=== PATIENT | male | born 1970 | race Caucasian/White ===

== ENCOUNTER 2019-08-11 10:03 | Day surgery (SDC) | payer OTHER ==
[~2019-08-11 10:03] MED LIST: Propofol 200 MG/20 ML SDV ONE
[2019-08-11] MEDS ORDERED: Sodium Chloride 0.9% 10 ML Syringe FLUSH PRN (10:15)
[2019-08-11] MEDS: Lactated Ringers 1,000 ML IV SCH (11:03)
--- NOTE | 2019-08-11 11:04 | PCM.HPR ---
H & P Addendum review - H & P Addendum Review Date of Original H & P: 07/22/19 Date Reviewed: 08/11/19 Time Reviewed: 11:04 Patient was Examined: No Changes
[2019-08-11] MEDS ORDERED: Propofol 200 MG/20 ML SDV ONE (11:11)
[2019-08-11] MEDS ORDERED: Lidocaine 2% 5 ML SDV ONE (11:11)
--- NOTE | 2019-08-11 11:54 | PCM.OPNOTE ---
- General Post-Op/Procedure Note Date of Surgery/Procedure: 08/11/19 Operative Procedure(s): EGD and Colonoscopy Findings: Hiatal Hernia, Normal colon Pre Op Diagnosis: GERD; Screening Post-Op Diagnosis: Same Anesthesia Technique: MAC Primary Surgeon: Johan Hollingsworth Complications: None Condition: Good
--- NOTE | 2019-08-11 12:26 | OR ---
Date of Procedure: 08/11/2019 PREOPERATIVE DIAGNOSES: 1. Gastroesophageal reflux disease. 2. Colon screening. POSTOPERATIVE DIAGNOSES: 1. Hiatal hernia. 2. Normal colonoscopy. PROCEDURE: 1. EGD. 2. Colonoscopy. ANESTHESIA: IV sedation. PROCEDURE IN DETAIL: The patient was brought to the procedure room where he was placed on his left side and IV sedation administered. Oral bite block was placed and the upper endoscope advanced into the esophagus under direct vision without difficulty. Vocal cords were viewed and were normal. The scope was advanced to the third portion of the duodenum. Duodenum and pylorus were normal. Antrum and body of the stomach were normal. Retroflexion reveals a small regular hiatal hernia of approximately 3 cm in length. The squamocolumnar junction appears normal. There was no evidence of esophagitis, erosions, ulcerations, strictures, or other abnormalities. Air was removed from the stomach and the scope withdrawn through the remaining esophagus which appears normal. The patient tolerated this portion of the procedure well. Next, colonoscopy was performed after digital rectal exam was done, which was normal. Colonoscope was inserted and advanced to the level of the cecum with difficulty getting through a tortuous colon. This required changing to the supine position and providing pressure on the abdomen. Eventually, I was able to reach the cecum which was confirmed by identifying the appendiceal lumen and ileocecal valve. Prep was good and surfaces were well visualized. Upon withdrawing the scope, the ascending, transverse, and descending colon were normal in appearance. Sigmoid colon and rectum were normal. Retroflexion was normal. Air was removed. The scope withdrawn. Patient tolerated the procedure well and returned to recovery in stable condition. PLAN: Recommend routine colon screening in 10 years. Standard recommendations for GERD including medication and lifestyle changes are encouraged. DANIELLE SANTOS MD /[id number]
[2019-08-11 15:44] VITALS: BP 114/76; PULSE 75
== END 2019-08-11 13:10 | disposition home or self-care (01) ==
LOC: LL.SDS 10:03
PROVIDERS: ATTEND Surgery
DX: K21.9 Gastro-esophageal reflux disease without esophagitis (principal); K62.5 Hemorrhage of anus and rectum; K44.9 Diaphragmatic hernia without obstruction or gangrene; Q43.8 Other specified congenital malformations of intestine; I10 Essential (primary) hypertension; E78.5 Hyperlipidemia, unspecified; E06.3 Autoimmune thyroiditis; E03.9 Hypothyroidism, unspecified; N52.9 Male erectile dysfunction, unspecified; I86.1 Scrotal varices; E66.3 Overweight; Z68.28 Body mass index [BMI] 28.0-28.9, adult; Z79.899 Other long term (current) drug therapy
CPT/HCPCS: J2001; J2704; J7120